=== PATIENT | male | born 1940 | race Caucasian/White ===

== ENCOUNTER 2019-06-06 06:53 | Outpatient (CLI) | payer MEDICARE, OTHER, SELFPAY ==
--- NOTE | ~2019-06-06 | XR_ITS ---
EXAMINATION: XR chest 2V DATE: 06/06/2019 07:25 INDICATION: COPD exacerbation. Cough. TECHNIQUE: PA and lateral views of the chest were obtained. COMPARISON: Chest radiograph dated 09/13/2018 FINDINGS: Hyperexpansion of lungs with flattening of the diaphragm. Increased lucency throughout the left lung particularly at the lower lung zone with architectural distortion consistent with emphysema. No focal airspace opacities, pulmonary edema or pneumothorax. Blunting at the left posterior sulcus consisten t with tiny pleural effusion. The cardiomediastinal silhouette is normal. Coronary artery stent. Ther e are bridging osteophytes at multiple levels in the spine, consistent with diffuse idiopathic skelet al hyperostosis (DISH). IMPRESSION: 1. Hyperexpansion of lungs with increased lucency and architectural distortion consistent with given history of COPD. Reviewed, dictated and finalized at location A. RAL PRE ARRANGEMENT COUNSELOR
[2019-06-06 09:28] LABS: Basophils Percent Auto 0.3 % (0.2-1.2); Eosinophils Percent Auto 0.2 % (0-4.4); Hematocrit 36.9 % (42.0-52.0); Hemoglobin 11.6 g/dL (14.0-18.0); Immature Granulocyte Absolute 0.04 K/mm3 (0.00-0.031); Immature Granulocyte Percent A 0.4 % (0-0.5); Lymphocytes Absolute Auto 1.07 K/mm3 (0.9-3.2); Lymphocytes Percent Auto 10.9 % (18.3-44.2); Mean Corpuscular HGB Conc 31.4 g/dl (32-36); Mean Corpuscular Hemoglobin 25.9 pg (26-34); Mean Corpuscular Volume 82.4 fl (80-100); Mean Platelet Volume 9.4 fl (7.4-10.4); Monocytes Absolute Auto 0.7 K/mm3 (0.1-0.6); Monocytes Percent Auto 6.6 % (2.6-8.5); Neutrophils Percent Auto 81.6 % (45.5-73.1); Platelet Count Result 263 k/mm3 (150-375); Red Blood Count 4.48 M/mm3 (4.6-6.20); Red Cell Distribution Width 19.5 % (11.5-14.5); White Blood Count 9.8 K/mm3 (4.5-10.0)
[2019-06-06 10:05] LABS: Alanine Aminotransferase 21 U/L (4-50); Albumin Level 3.8 g/dL (3.5-5.1); Alkaline Phosphatase 70 U/L (38-126); Aspartate Amino Transferase 29 U/L (17-59); Bilirubin,Total 0.5 mg/dL (0.2-1.3); Blood Urea Nitrogen 16 mg/dL (9-20); Calcium 9.6 mg/dL (8.4-10.2); Carbon Dioxide 30 mmol/L (22-30); Chloride 102 mmol/L (98-107); Cholesterol 108 mg/dL (0-200); Estimated Glomerular Filt Rate > 60; Glucose 164 mg/dL (75-110); HDL Direct 39 mg/dL; Potassium 4.1 mmol/L (3.4-5.0); Sodium 140 mmol/L (137-145); Triglycerides 99 mg/dL (<150)
[2019-06-06 10:16] LABS: LDL Cholesterol Direct 49 mg/dL
[2019-06-06 10:34] LABS: Prostate Specific Antigen 5.4 ng/mL (< OR = 4.0)
[2019-06-06 11:13] LABS: Creatinine Urine 147.1 mg/dL
[2019-06-06 11:17] LABS: MALB Creatinine Ratio 18.8 mg/g (0-30); Microalbumin Urine Random 27.6 mg/L (0-16.7)
== END 2019-06-06 06:54 | disposition home or self-care (01) ==
PROVIDERS: PCP Family Medicine; Visit Provider Family Medicine
DX: J44.1 Chronic obstructive pulmonary disease with (acute) exacerbation (principal); E11.9 Type 2 diabetes mellitus without complications; Z12.5 Encounter for screening for malignant neoplasm of prostate
CPT/HCPCS: 36415; 71046; 80053; 80061; 82043; 83036; 84153; 85025; G0103

== ENCOUNTER 2019-08-10 07:27 | Outpatient (CLI) | payer MEDICARE, OTHER, SELFPAY ==
[2019-08-10 08:27] LABS: Basophils Percent Auto 0.5 % (0.2-1.2); Eosinophils Absolute Auto 0.1 K/mm3 (0-0.3); Eosinophils Percent Auto 1.6 % (0-4.4); Hemoglobin 11.6 g/dL (14.0-18.0); Immature Granulocyte Absolute 0.04 K/mm3 (0.00-0.031); Immature Granulocyte Percent A 0.5 % (0-0.5); Lymphocytes Absolute Auto 1.54 K/mm3 (0.9-3.2); Lymphocytes Percent Auto 18.7 % (18.3-44.2); Mean Corpuscular HGB Conc 31.4 g/dl (32-36); Mean Corpuscular Hemoglobin 26.9 pg (26-34); Mean Corpuscular Volume 85.8 fl (80-100); Mean Platelet Volume 10.1 fl (7.4-10.4); Monocytes Absolute Auto 0.7 K/mm3 (0.1-0.6); Monocytes Percent Auto 8.8 % (2.6-8.5); Neutrophils Absolute Auto 5.8 K/mm3 (1.3-6.7); Neutrophils Percent Auto 69.9 % (45.5-73.1); Platelet Count Result 199 k/mm3 (150-375); Red Blood Count 4.31 M/mm3 (4.6-6.20); Red Cell Distribution Width 17.4 % (11.5-14.5); White Blood Count 8.2 K/mm3 (4.5-10.0)
[2019-08-10 08:44] LABS: Alanine Aminotransferase 24 U/L (4-50); Albumin Level 3.5 g/dL (3.5-5.1); Alkaline Phosphatase 63 U/L (38-126); Aspartate Amino Transferase 25 U/L (17-59); Bilirubin,Total 0.4 mg/dL (0.2-1.3); Blood Urea Nitrogen 19 mg/dL (9-20); Calcium 9.3 mg/dL (8.4-10.2); Carbon Dioxide 30 mmol/L (22-30); Chloride 99 mmol/L (98-107); Cholesterol 123 mg/dL (0-200); Estimated Glomerular Filt Rate > 60; Glucose 148 mg/dL (75-110); HDL Direct 42 mg/dL; Potassium 3.9 mmol/L (3.4-5.0); Sodium 139 mmol/L (137-145); Triglycerides 84 mg/dL (<150)
[2019-08-10 08:55] LABS: LDL Cholesterol Direct 65 mg/dL
== END 2019-08-10 07:28 | disposition home or self-care (01) ==
PROVIDERS: PCP Family Medicine
DX: I25.10 Atherosclerotic heart disease of native coronary artery without angina pectoris (principal); E78.5 Hyperlipidemia, unspecified; I10 Essential (primary) hypertension
CPT/HCPCS: 36415; 80053; 80061; 85025

== ENCOUNTER 2020-01-12 16:35 | Emergency (ER) | payer MEDICARE, OTHER, SELFPAY ==
--- NOTE | ~2020-01-12 | XR_ITS ---
XR wrist LT min 3V 01/12/2020 17:06 Indication: Left wrist pain and redness Procedure: 4 views left wrist Comparison: No prior studies for comparison. Findings: There are degenerative changes of the radiocarpal and triscaphe joint. No fracture or traum atic malalignment. No focal soft tissue abnormality. No radiopaque foreign bodies. Impression: 1: No acute bone or joint abnormality. Reviewed, dictated and finalized at location A. Impression: 1: No acute bone or joint abnormality.
[2020-01-12 16:41] VITALS: BP 135/85; PULSE 87; RESP 20; TEMP 37.5; O2SAT 96
--- NOTE | 2020-01-12 16:41 | ED.GENADULT ---
HPI - General Adult General Chief complaint: Extremity Injury, Lower Stated complaint: left wrist injury Time Seen by Provider: 01/12/20 16:56 Source: patient Mode of arrival: ambulatory Limitations: no limitations History of Present Illness HPI narrative: 79-year-old male patient presents the [facility] care with complaints of left wrist pain that started yesterday. Patient states that his lady friend touched his wrist yesterday and he noticed that it was painful. Patient states he looked down noted some redness and some swelling to the left wrist. Denies any injury that he is aware of to the left wrist. Patient states he was on blood thinners about 9 months ago but no longer taking any blood thinners. Patient states it does have slight pain to the wrist with movement. Related Data Home Medications Medication Instructions Recorded Confirmed Combivent Respimat 01/12/20 Glucophage 01/12/20 Lasix 01/12/20 Lotrel 01/12/20 Pepcid 01/12/20 Protonix 01/12/20 Singulair 01/12/20 Toprol XL 01/12/20 atorvastatin 01/12/20 fluticasone propion-salmeterol INHALATION 01/12/20 [Advair Diskus] hydrochlorothiazide 01/12/20 potassium chloride meq PO 01/12/20 tamsulosin mg PO 01/12/20 tiotropium bromide [Spiriva with INHALATION 01/12/20 01/12/20 HandiHaler] Allergies Allergy/AdvReac Type Severity Reaction Status Date / Time No Known Allergies Allergy Unverified 09/13/18 19:18 Review of Systems Review of Systems: Narrative: CONSTITUTIONAL: Denies fever, chills, or sweats. EYES: Denies visual changes, redness, or discharge. ENT: Denies rhinorrhea, congestion, sore throat, or otalgia. CARDIOVASCULAR: Denies chest pain, palpitations, or edema. RESPIRATORY: Denies cough or dyspnea. GASTROINTESTINAL: Denies abdominal pain, nausea, vomiting, or diarrhea. GENITOURINARY: Denies dysuria or hematuria. SKIN: Denies rash or itching. MUSCULOSKELETAL: Denies back pain, joint pain, or myalgia. Positive left wrist pain NEUROLOGIC: Denies headache, numbness, or weakness. PSYCHIATRIC: Denies anxiety or depression. [facility] Past Medical History Medical History (Updated 01/12/20 @ 17:14 by INGE Fields) BPH (benign prostatic hyperplasia) Cataracts, bilateral COPD (chronic obstructive pulmonary disease) Diabetes Hypercholesterolemia Hypertension Pneumonia Surgical History Surgical History (Updated 01/12/20 @ 17:10 by INGE Fields) H/O cardiac catheterization 2005 H/O transurethral resection of prostate 2017 History of appendectomy History of bladder surgery Family History Family History Father Family history of arthritis Mother Family history of arthritis Social History Social History Smoking status: Former smoker Alcohol intake: current Gender identity (if verbalized by the patient): Male Comments At the time of my signature I agree with nursing past medical history, surgical, social, and family history. There is no relevant family history pertinent to the presenting complaint. Exam Narrative: Exam Narrative: GENERAL: Well-appearing, well-nourished, and in no acute distress. HEAD: Normocephalic, atraumatic. EYES: PERRLA and EOMI. ENT: Nares clear, no rhinorrhea or epistaxis. Mucous membranes moist. NECK: Supple. No lymphadenopathy CHEST: Clear to auscultation. No respiratory distress. HEART: Regular rate and rhythm. No murmur heard. Normal peripheral pulses. ABDOMEN: Soft, nontender, nondistended, normal active bowel sounds. EXTREMITIES: The L wrist is without obvious asymmetry or deformity when compared to the R wrist. No surface trauma, open wounds, swelling, or obvious deformity. overlying erythema with slight warmth noted over the dorsal and ulnar side of the joint of the wrist. Patient does have pain with flexion of the wrist and mild pain with dorsiflexion of
== END 2020-01-12 17:27 | disposition home or self-care (01) ==
PROVIDERS: Emergency Provider Nurse Practitioner Family; PCP Family Medicine
DX: M10.9 Gout, unspecified (principal); Z87.891 Personal history of nicotine dependence; N40.0 Benign prostatic hyperplasia without lower urinary tract symptoms; J44.9 Chronic obstructive pulmonary disease, unspecified; E11.9 Type 2 diabetes mellitus without complications; E78.00 Pure hypercholesterolemia, unspecified; I10 Essential (primary) hypertension
CPT/HCPCS: 73110; 99213; G0463

== ENCOUNTER 2020-02-15 07:26 | Outpatient (CLI) | payer MEDICARE, OTHER, SELFPAY ==
[2020-02-15 07:54] LABS: Basophils Absolute Auto 0.1 K/mm3 (0.0-0.1); Basophils Percent Auto 0.8 % (0.2-1.2); Eosinophils Absolute Auto 0.3 K/mm3 (0-0.3); Hematocrit 34.6 % (42.0-52.0); Hemoglobin 11.4 g/dL (14.0-18.0); Immature Granulocyte Absolute 0.03 K/mm3 (0.00-0.031); Immature Granulocyte Percent A 0.3 % (0-0.5); Lymphocytes Absolute Auto 1.76 K/mm3 (0.9-3.2); Lymphocytes Percent Auto 20.5 % (18.3-44.2); Mean Corpuscular HGB Conc 32.9 g/dl (32-36); Mean Corpuscular Hemoglobin 30.7 pg (26-34); Mean Corpuscular Volume 93.3 fl (80-100); Mean Platelet Volume 9.7 fl (7.4-10.4); Monocytes Absolute Auto 0.8 K/mm3 (0.1-0.6); Monocytes Percent Auto 9.4 % (2.6-8.5); Neutrophils Absolute Auto 5.6 K/mm3 (1.3-6.7); Platelet Count Result 211 k/mm3 (150-375); Red Blood Count 3.71 M/mm3 (4.6-6.20); Red Cell Distribution Width 12.7 % (11.5-14.5); White Blood Count 8.6 K/mm3 (4.5-10.0)
[2020-02-15 07:59] LABS: Alanine Aminotransferase 17 U/L (4-50); Albumin Level 3.9 g/dL (3.5-5.1); Alkaline Phosphatase 67 U/L (38-126); Anion Gap 10 mmol/L (8-16); Aspartate Amino Transferase 25 U/L (17-59); Bilirubin,Total 0.3 mg/dL (0.2-1.3); Blood Urea Nitrogen 30 mg/dL (9-20); Calcium 8.9 mg/dL (8.4-10.2); Carbon Dioxide 32 mmol/L (22-30); Chloride 97 mmol/L (98-107); Cholesterol 113 mg/dL (0-200); Estimated Glomerular Filt Rate 49; Glucose 117 mg/dL (75-110); HDL Direct 31 mg/dL; Potassium 3.2 mmol/L (3.4-5.0); Sodium 139 mmol/L (137-145); Triglycerides 117 mg/dL (<150)
[2020-02-15 08:10] LABS: LDL Cholesterol Direct 56 mg/dL
== END 2020-02-15 07:27 | disposition home or self-care (01) ==
LOC: ANHLAB 07:31
PROVIDERS: PCP Family Medicine
DX: I25.10 Atherosclerotic heart disease of native coronary artery without angina pectoris (principal)
CPT/HCPCS: 36415; 80053; 80061; 85025

== ENCOUNTER 2020-02-19 11:38 | Outpatient (CLI) | payer MEDICARE, OTHER, SELFPAY | END 2020-02-19 11:39 | disposition home or self-care (01) | LOC: ANHLAB 11:42 | PROVIDERS: PCP Family Medicine; Visit Provider Family Medicine | DX: R53.83 Other fatigue (principal); L65.9 Nonscarring hair loss, unspecified | CPT/HCPCS: 36415; 82607; 84443 ==

== ENCOUNTER 2020-08-22 07:31 | Outpatient (CLI) | payer MEDICARE, OTHER, SELFPAY ==
[2020-08-22 07:54] LABS: Basophils Absolute Auto 0.1 K/mm3 (0.0-0.1); Basophils Percent Auto 0.9 % (0.2-1.2); Eosinophils Absolute Auto 0.3 K/mm3 (0-0.3); Eosinophils Percent Auto 4.6 % (0-4.4); Hematocrit 34.2 % (42.0-52.0); Hemoglobin 10.9 g/dL (14.0-18.0); Immature Granulocyte Absolute 0.02 K/mm3 (0.00-0.031); Immature Granulocyte Percent A 0.3 % (0-0.5); Lymphocytes Percent Auto 21.4 % (18.3-44.2); Mean Corpuscular HGB Conc 31.9 g/dl (32-36); Mean Corpuscular Hemoglobin 26.1 pg (26-34); Mean Corpuscular Volume 81.8 fl (80-100); Mean Platelet Volume 9.3 fl (7.4-10.4); Monocytes Absolute Auto 0.6 K/mm3 (0.1-0.6); Monocytes Percent Auto 9.1 % (2.6-8.5); Neutrophils Absolute Auto 4.5 K/mm3 (1.3-6.7); Neutrophils Percent Auto 63.7 % (45.5-73.1); Platelet Count Result 203 k/mm3 (150-375); Red Blood Count 4.18 M/mm3 (4.6-6.20); Red Cell Distribution Width 16.8 % (11.5-14.5)
[2020-08-22 08:13] LABS: Alanine Aminotransferase 16 U/L (4-50); Albumin Level 3.8 g/dL (3.5-5.1); Alkaline Phosphatase 56 U/L (38-126); Anion Gap 11 mmol/L (8-16); Aspartate Amino Transferase 27 U/L (17-59); Bilirubin,Total 0.4 mg/dL (0.2-1.3); Blood Urea Nitrogen 30 mg/dL (9-20); Carbon Dioxide 32 mmol/L (22-30); Chloride 96 mmol/L (98-107); Cholesterol 123 mg/dL (0-200); Estimated Glomerular Filt Rate 45; Glucose 124 mg/dL (75-110); HDL Direct 37 mg/dL; Potassium 3.6 mmol/L (3.4-5.0); Sodium 139 mmol/L (137-145); Triglycerides 119 mg/dL (<150)
[2020-08-22 08:24] LABS: LDL Cholesterol Direct 59 mg/dL
== END 2020-08-22 07:32 | disposition home or self-care (01) ==
PROVIDERS: PCP Family Medicine; Visit Provider Internal Medicine Interventional Cardiology
DX: I25.10 Atherosclerotic heart disease of native coronary artery without angina pectoris (principal)
CPT/HCPCS: 36415; 80053; 80061; 85025

== ENCOUNTER 2020-09-09 14:42 | Outpatient (CLI) | payer MEDICARE, OTHER, SELFPAY ==
[2020-09-09 15:11] LABS: Anion Gap 6 mmol/L (8-16); Blood Urea Nitrogen 27 mg/dL (9-20); Calcium 8.9 mg/dL (8.4-10.2); Carbon Dioxide 33 mmol/L (22-30); Chloride 102 mmol/L (98-107); Estimated Glomerular Filt Rate 45; Glucose 112 mg/dL (75-110); Potassium 3.9 mmol/L (3.4-5.0); Sodium 141 mmol/L (137-145)
== END 2020-09-09 14:43 | disposition home or self-care (01) ==
PROVIDERS: PCP Family Medicine; Visit Provider Internal Medicine Interventional Cardiology
DX: I10 Essential (primary) hypertension (principal)
CPT/HCPCS: 36415; 80048

== ENCOUNTER 2020-11-24 15:42 | Outpatient (CLI) | payer MEDICARE, OTHER, SELFPAY ==
[2020-11-24 16:51] LABS: Anion Gap 1 mmol/L (8-16); Blood Urea Nitrogen 27 mg/dL (9-20); Calcium 10.1 mg/dL (8.4-10.2); Carbon Dioxide 31 mmol/L (22-30); Chloride 105 mmol/L (98-107); Estimated Glomerular Filt Rate 59; Glucose 114 mg/dL (75-110); Potassium 4.4 mmol/L (3.4-5.0); Sodium 137 mmol/L (137-145)
== END 2020-11-24 15:43 | disposition home or self-care (01) ==
LOC: ANHLAB 15:45
PROVIDERS: PCP Family Medicine; Visit Provider Internal Medicine Interventional Cardiology
DX: I10 Essential (primary) hypertension (principal)
CPT/HCPCS: 36415; 80048

== ENCOUNTER 2020-11-24 15:47 | Outpatient (CLI) | payer MEDICARE, OTHER, SELFPAY ==
[2020-11-24 16:53] LABS: Hemoglobin A1C 6.6 % (<5.7)
== END 2020-11-24 15:48 | disposition home or self-care (01) ==
LOC: ANHLAB 15:48
PROVIDERS: PCP Family Medicine; Visit Provider Family Medicine
DX: E11.9 Type 2 diabetes mellitus without complications (principal)
CPT/HCPCS: 36415; 80048; 83036

== ENCOUNTER 2021-04-10 08:56 | Outpatient (CLI) | payer MEDICARE, OTHER, SELFPAY ==
[2021-04-10 10:20] LABS: Alanine Aminotransferase 16 U/L (4-50); Albumin Level 3.8 g/dL (3.5-5.1); Alkaline Phosphatase 70 U/L (38-126); Anion Gap 3 mmol/L (8-16); Aspartate Amino Transferase 25 U/L (17-59); Bilirubin,Total 0.3 mg/dL (0.2-1.3); Blood Urea Nitrogen 18 mg/dL (9-20); Calcium 9.1 mg/dL (8.4-10.2); Carbon Dioxide 34 mmol/L (22-30); Chloride 102 mmol/L (98-107); Cholesterol 122 mg/dL (0-200); Estimated Glomerular Filt Rate > 60; Glucose 154 mg/dL (65-110); HDL Direct 42 mg/dL; Potassium 3.8 mmol/L (3.4-5.0); Sodium 139 mmol/L (137-145); Triglycerides 82 mg/dL (<150)
[2021-04-10 10:31] LABS: LDL Cholesterol Direct 64 mg/dL
== END 2021-04-10 08:57 | disposition home or self-care (01) ==
LOC: ANHLAB 08:59
PROVIDERS: PCP Family Medicine; Visit Provider Internal Medicine Interventional Cardiology
DX: I10 Essential (primary) hypertension (principal); I25.118 Atherosclerotic heart disease of native coronary artery with other forms of angina pectoris
CPT/HCPCS: 36415; 80053; 80061

== ENCOUNTER 2021-07-10 07:00 | Outpatient (CLI) | payer MEDICARE, OTHER, SELFPAY ==
[2021-07-10 09:08] LABS: Hemoglobin A1C 7.7 % (<5.7)
== END 2021-07-10 07:01 | disposition home or self-care (01) ==
PROVIDERS: PCP Family Medicine; Visit Provider Family Medicine
DX: E11.9 Type 2 diabetes mellitus without complications (principal)
CPT/HCPCS: 36415; 83036

== ENCOUNTER 2021-10-15 08:56 | Outpatient (CLI) | payer MEDICARE, OTHER, SELFPAY ==
[2021-10-15 09:29] LABS: Alanine Aminotransferase 80 U/L (4-50); Albumin Level 3.5 g/dL (3.5-5.1); Alkaline Phosphatase 134 U/L (38-126); Anion Gap 4 mmol/L (8-16); Aspartate Amino Transferase 36 U/L (17-59); Bilirubin,Total 0.6 mg/dL (0.2-1.3); Blood Urea Nitrogen 33 mg/dL (9-20); Calcium 9.1 mg/dL (8.4-10.2); Carbon Dioxide 30 mmol/L (22-30); Chloride 102 mmol/L (98-107); Cholesterol 131 mg/dL (0-200); Estimated Glomerular Filt Rate 53; Glucose 235 mg/dL (65-110); HDL Direct 42 mg/dL; Potassium 4.9 mmol/L (3.4-5.0); Sodium 136 mmol/L (137-145); Triglycerides 119 mg/dL (<150)
[2021-10-15 09:40] LABS: LDL Cholesterol Direct 59 mg/dL
== END 2021-10-15 08:57 | disposition home or self-care (01) ==
LOC: ANHLAB 09:01
PROVIDERS: PCP Family Medicine; Visit Provider Internal Medicine Interventional Cardiology
DX: E78.5 Hyperlipidemia, unspecified (principal); I48.91 Unspecified atrial fibrillation
CPT/HCPCS: 36415; 80053; 80061

== ENCOUNTER 2022-01-18 07:07 | Outpatient (CLI) | payer MEDICARE, OTHER, SELFPAY ==
[2022-01-18 07:37] LABS: Basophils Absolute Auto 0.1 K/mm3 (0.0-0.1); Basophils Percent Auto 0.9 % (0.2-1.2); Eosinophils Absolute Auto 0.5 K/mm3 (0-0.3); Eosinophils Percent Auto 4.1 % (0-4.4); Hematocrit 34.1 % (42.0-52.0); Hemoglobin 10.7 g/dL (14.0-18.0); Immature Granulocyte Absolute 0.16 K/mm3 (0.00-0.031); Immature Granulocyte Percent A 1.5 % (0-0.5); Lymphocytes Absolute Auto 1.46 K/mm3 (0.9-3.2); Lymphocytes Percent Auto 13.3 % (18.3-44.2); Mean Corpuscular HGB Conc 31.4 g/dl (32-36); Mean Corpuscular Hemoglobin 27.2 pg (26-34); Mean Corpuscular Volume 86.8 fl (80-100); Mean Platelet Volume 9.3 fl (7.4-10.4); Monocytes Absolute Auto 1.1 K/mm3 (0.1-0.6); Monocytes Percent Auto 9.8 % (2.6-8.5); Neutrophils Absolute Auto 7.7 K/mm3 (1.3-6.7); Neutrophils Percent Auto 70.4 % (45.5-73.1); Platelet Count Result 272 k/mm3 (150-375); Red Blood Count 3.93 M/mm3 (4.6-6.20); Red Cell Distribution Width 17.8 % (11.5-14.5)
[2022-01-18 07:47] LABS: Alanine Aminotransferase 23 U/L (6-50); Albumin Level 3.5 g/dL (3.5-5.1); Alkaline Phosphatase 98 U/L (38-126); Anion Gap 5 mmol/L (8-16); Aspartate Amino Transferase 22 U/L (17-59); Bilirubin,Total 0.3 mg/dL (0.2-1.3); Blood Urea Nitrogen 23 mg/dL (9-20); Calcium 9.1 mg/dL (8.4-10.2); Carbon Dioxide 28 mmol/L (22-30); Chloride 105 mmol/L (98-107); Cholesterol 106 mg/dL (0-200); Estimated Glomerular Filt Rate > 60; Glucose 162 mg/dL (65-110); HDL Direct 34 mg/dL; Potassium 4.5 mmol/L (3.4-5.0); Sodium 138 mmol/L (137-145); Triglycerides 79 mg/dL (<150)
[2022-01-18 07:57] LABS: LDL Cholesterol Direct 40 mg/dL
== END 2022-01-18 07:08 | disposition home or self-care (01) ==
PROVIDERS: PCP Family Medicine; Visit Provider Internal Medicine Interventional Cardiology
DX: I48.0 Paroxysmal atrial fibrillation (principal); I25.10 Atherosclerotic heart disease of native coronary artery without angina pectoris; E78.5 Hyperlipidemia, unspecified; I10 Essential (primary) hypertension
CPT/HCPCS: 36415; 80053; 80061; 85025

== ENCOUNTER 2022-02-02 12:30 | Outpatient (CLI) | payer MEDICARE, OTHER, SELFPAY ==
[2022-02-02 12:59] LABS: Basophils Absolute Auto 0.1 K/mm3 (0.0-0.1); Basophils Percent Auto 0.7 % (0.2-1.2); Eosinophils Absolute Auto 0.3 K/mm3 (0-0.3); Eosinophils Percent Auto 3.3 % (0-4.4); Hematocrit 36.6 % (42.0-52.0); Immature Granulocyte Absolute 0.07 K/mm3 (0.00-0.031); Immature Granulocyte Percent A 0.7 % (0-0.5); Lymphocytes Absolute Auto 1.06 K/mm3 (0.9-3.2); Mean Corpuscular HGB Conc 30.1 g/dl (32-36); Mean Corpuscular Hemoglobin 27.1 pg (26-34); Mean Corpuscular Volume 90.1 fl (80-100); Mean Platelet Volume 9.4 fl (7.4-10.4); Monocytes Absolute Auto 0.9 K/mm3 (0.1-0.6); Monocytes Percent Auto 9.3 % (2.6-8.5); Neutrophils Absolute Auto 7.2 K/mm3 (1.3-6.7); Platelet Count Result 207 k/mm3 (150-375); Red Blood Count 4.06 M/mm3 (4.6-6.20); White Blood Count 9.6 K/mm3 (4.5-10.0)
== END 2022-02-02 12:31 | disposition home or self-care (01) ==
LOC: ANHLAB 12:34
PROVIDERS: PCP Family Medicine; Visit Provider Internal Medicine Gastroenterology
DX: D64.9 Anemia, unspecified (principal)
CPT/HCPCS: 36415; 85025

== ENCOUNTER 2022-02-25 14:11 | Outpatient (CLI) | payer MEDICARE, OTHER, SELFPAY ==
[2022-02-25 15:30] LABS: Anion Gap 10 mmol/L (8-16); Blood Urea Nitrogen 33 mg/dL (9-20); Carbon Dioxide 27 mmol/L (22-30); Chloride 98 mmol/L (98-107); Estimated Glomerular Filt Rate 45; Glucose 103 mg/dL (65-110); Sodium 135 mmol/L (137-145)
== END 2022-02-25 14:12 | disposition home or self-care (01) ==
LOC: ANHLAB 14:15
PROVIDERS: PCP Family Medicine; Visit Provider Internal Medicine Interventional Cardiology
DX: I10 Essential (primary) hypertension (principal)
CPT/HCPCS: 36415; 80048

== ENCOUNTER 2022-05-04 15:41 | Outpatient (CLI) | payer MEDICARE, OTHER, SELFPAY ==
[2022-05-04 16:03] LABS: Hematocrit 38.3 % (42.0-52.0); Hemoglobin 11.6 g/dL (14.0-18.0); Mean Corpuscular HGB Conc 30.3 g/dl (32-36); Mean Corpuscular Hemoglobin 27.2 pg (26-34); Mean Corpuscular Volume 89.7 fl (80-100); Mean Platelet Volume 9.7 fl (7.4-10.4); Platelet Count Result 205 k/mm3 (150-375); Red Blood Count 4.27 M/mm3 (4.6-6.20); Red Cell Distribution Width 20.8 % (11.5-14.5); White Blood Count 9.8 K/mm3 (4.5-10.0)
[2022-05-04 16:12] LABS: Alanine Aminotransferase 24 U/L (6-50); Albumin Level 4.1 g/dL (3.5-5.1); Alkaline Phosphatase 104 U/L (38-126); Anion Gap 14 mmol/L (8-16); Aspartate Amino Transferase 30 U/L (17-59); Bilirubin,Total 0.3 mg/dL (0.2-1.3); Blood Urea Nitrogen 29 mg/dL (9-20); Calcium 9.4 mg/dL (8.4-10.2); Carbon Dioxide 26 mmol/L (22-30); Chloride 100 mmol/L (98-107); Estimated Glomerular Filt Rate 49; Glucose 130 mg/dL (65-110); Potassium 4.1 mmol/L (3.4-5.0); Sodium 140 mmol/L (137-145)
[2022-05-04 16:14] LABS: Iron 100 ug/dL (49-181)
[2022-05-04 16:15] LABS: Hemoglobin A1C 7.1 % (<5.7)
[2022-05-04 16:23] LABS: Percent Iron Saturation 26 % (20-50)
== END 2022-05-04 15:42 | disposition home or self-care (01) ==
PROVIDERS: PCP Family Medicine; Visit Provider Internal Medicine Gastroenterology
DX: E11.9 Type 2 diabetes mellitus without complications (principal); D64.9 Anemia, unspecified
CPT/HCPCS: 36415; 80053; 83036; 83540; 83550; 85027

== ENCOUNTER 2022-05-15 13:23 | Outpatient (CLI) | payer MEDICARE, OTHER, SELFPAY ==
[2022-05-15 13:48] LABS: Anion Gap 15 mmol/L (8-16); Blood Urea Nitrogen 30 mg/dL (9-20); Calcium 9.4 mg/dL (8.4-10.2); Carbon Dioxide 28 mmol/L (22-30); Chloride 100 mmol/L (98-107); Estimated Glomerular Filt Rate 49; Glucose 132 mg/dL (65-110); Potassium 4.3 mmol/L (3.4-5.0); Sodium 143 mmol/L (137-145)
== END 2022-05-15 13:24 | disposition home or self-care (01) ==
LOC: ANHLAB 13:26
PROVIDERS: PCP Family Medicine; Visit Provider Internal Medicine Interventional Cardiology
DX: I10 Essential (primary) hypertension (principal)
CPT/HCPCS: 36415; 80048

== ENCOUNTER 2022-11-03 07:03 | Outpatient (CLI) | payer MEDICARE, OTHER, SELFPAY ==
[2022-11-03 07:53] LABS: Basophils Absolute Auto 0.1 K/mm3 (0.0-0.1); Basophils Percent Auto 0.6 % (0.2-1.2); Eosinophils Absolute Auto 0.2 K/mm3 (0-0.3); Eosinophils Percent Auto 2.2 % (0-4.4); Hematocrit 40.8 % (42.0-52.0); Hemoglobin 12.7 g/dL (14.0-18.0); Immature Granulocyte Absolute 0.15 K/mm3 (0.00-0.031); Immature Granulocyte Percent A 1.7 % (0-0.5); Lymphocytes Absolute Auto 0.97 K/mm3 (0.9-3.2); Lymphocytes Percent Auto 11.2 % (18.3-44.2); Mean Corpuscular HGB Conc 31.1 g/dl (32-36); Mean Corpuscular Hemoglobin 29.3 pg (26-34); Mean Corpuscular Volume 94.2 fl (80-100); Mean Platelet Volume 9.6 fl (7.4-10.4); Monocytes Absolute Auto 0.7 K/mm3 (0.1-0.6); Monocytes Percent Auto 7.6 % (2.6-8.5); Neutrophils Absolute Auto 6.6 K/mm3 (1.3-6.7); Neutrophils Percent Auto 76.7 % (45.5-73.1); Platelet Count Result 209 k/mm3 (150-375); Red Blood Count 4.33 M/mm3 (4.6-6.20); Red Cell Distribution Width 16.9 % (11.5-14.5); White Blood Count 8.6 K/mm3 (4.5-10.0)
[2022-11-03 08:10] LABS: Alanine Aminotransferase 25 U/L (6-50); Albumin Level 4.4 g/dL (3.5-5.1); Alkaline Phosphatase 106 U/L (38-126); Anion Gap 7 mmol/L (8-16); Aspartate Amino Transferase 29 U/L (17-59); Bilirubin,Total 0.7 mg/dL (0.2-1.3); Blood Urea Nitrogen 28 mg/dL (9-20); Calcium 9.8 mg/dL (8.4-10.2); Carbon Dioxide 33 mmol/L (22-30); Chloride 100 mmol/L (98-107); Cholesterol 110 mg/dL (0-200); Estimated Glomerular Filt Rate 53; Glucose 167 mg/dL (65-110); HDL Direct 39 mg/dL; Potassium 4.3 mmol/L (3.4-5.0); Sodium 140 mmol/L (137-145); Triglycerides 103 mg/dL (<150)
[2022-11-03 08:21] LABS: LDL Cholesterol Direct 52 mg/dL
[2022-11-03 09:45] LABS: Hemoglobin A1C 6.9 % (<5.7)
== END 2022-11-03 07:04 | disposition home or self-care (01) ==
LOC: ANHLAB 07:07
PROVIDERS: PCP Family Medicine
DX: E11.9 Type 2 diabetes mellitus without complications (principal); E78.2 Mixed hyperlipidemia
CPT/HCPCS: 36415; 80053; 80061; 83036; 85025

== ENCOUNTER 2022-12-23 06:51 | Outpatient (CLI) | payer MEDICARE, OTHER, SELFPAY ==
[2022-12-23 07:23] LABS: Basophils Absolute Auto 0.1 K/mm3 (0.0-0.1); Basophils Percent Auto 0.7 % (0.2-1.2); Eosinophils Absolute Auto 0.4 K/mm3 (0-0.3); Eosinophils Percent Auto 4.3 % (0-4.4); Hematocrit 38.4 % (42.0-52.0); Hemoglobin 11.7 g/dL (14.0-18.0); Immature Granulocyte Absolute 0.06 K/mm3 (0.00-0.031); Immature Granulocyte Percent A 0.6 % (0-0.5); Lymphocytes Absolute Auto 0.98 K/mm3 (0.9-3.2); Lymphocytes Percent Auto 9.9 % (18.3-44.2); Mean Corpuscular HGB Conc 30.5 g/dl (32-36); Mean Corpuscular Hemoglobin 27.4 pg (26-34); Mean Corpuscular Volume 89.9 fl (80-100); Mean Platelet Volume 9.8 fl (7.4-10.4); Monocytes Absolute Auto 0.8 K/mm3 (0.1-0.6); Monocytes Percent Auto 8.4 % (2.6-8.5); Neutrophils Absolute Auto 7.5 K/mm3 (1.3-6.7); Neutrophils Percent Auto 76.1 % (45.5-73.1); Platelet Count Result 222 k/mm3 (150-375); Red Blood Count 4.27 M/mm3 (4.6-6.20); Red Cell Distribution Width 16.2 % (11.5-14.5); White Blood Count 9.9 K/mm3 (4.5-10.0)
[2022-12-23 07:33] LABS: Alanine Aminotransferase 17 U/L (6-50); Albumin Level 4.1 g/dL (3.5-5.1); Alkaline Phosphatase 105 U/L (38-126); Anion Gap 4 mmol/L (8-16); Aspartate Amino Transferase 23 U/L (17-59); Bilirubin,Total 0.4 mg/dL (0.2-1.3); Blood Urea Nitrogen 31 mg/dL (9-20); Calcium 9.8 mg/dL (8.4-10.2); Carbon Dioxide 34 mmol/L (22-30); Chloride 101 mmol/L (98-107); Cholesterol 106 mg/dL (0-200); Estimated Glomerular Filt Rate 49; Glucose 174 mg/dL (65-110); HDL Direct 32 mg/dL; Potassium 4.7 mmol/L (3.4-5.0); Sodium 139 mmol/L (137-145); Triglycerides 115 mg/dL (<150)
[2022-12-23 07:43] LABS: LDL Cholesterol Direct 51 mg/dL
== END 2022-12-23 06:52 | disposition home or self-care (01) ==
PROVIDERS: PCP Family Medicine; Visit Provider Internal Medicine Interventional Cardiology
DX: E78.00 Pure hypercholesterolemia, unspecified (principal); I10 Essential (primary) hypertension; D64.9 Anemia, unspecified
CPT/HCPCS: 36415; 80053; 80061; 85025

== ENCOUNTER 2022-12-24 18:31 | Emergency (ER) | payer MEDICARE, OTHER, SELFPAY ==
[2022-12-24] VITALS (21 sets, daily range): BP systolic 105–137; BP diastolic 7–97; PULSE 95–114; RESP 12–37; TEMP 36.7; O2SAT 89–97
--- NOTE | ~2022-12-24 | CT_ITS ---
EXAMINATION: CTA chest PE protocol DATE: 12/24/2022 21:06 INDICATION: tachycardia, hypoxia, SOB TECHNIQUE: Computed tomography angiography (CTA) of the chest was performed with 100 mL Omnipaque-350 intravenous contrast timed to evaluate the pulmonary arteries. Coronal maximum intensity projection 3D-reconstructions were created by the technologist. The dose-length product (DLP) was 444.54 mGy-cm. Automated exposure control and iterative reconstruction technique were employed. COMPARISON: None. FINDINGS: Lung parenchyma and airways: Calcified left upper lobe granuloma. Emphysematous changes. Patent airwa ys. Pleura: Unremarkable. Thoracic inlet, axillae and chest wall: Unremarkable. Thoracic aorta: Moderate diffuse ectasia and unfolding. Mild calcification. Mediastinum: Prominent mediastinal lymph nodes, not pathologic based on size criteria. Dilated centra l pulmonary arteries, as can be seen with pulmonary arterial hypertension. Patulous esophagus. Heart and pericardium: Moderate volume pericardial fluid. Suggestion of narrowing of the heart apex. Mild septal bowing. Coronary artery calcifications: Absent. Upper abdomen: Marked gastric distention. Bones: No acute osseous finding. Pulmonary arteries: Study quality: Adequate. No pulmonary emboli detected. IMPRESSION: No CT evidence of acute pulmonary embolus. Moderate volume pericardial fluid with CT findings that suggest raised intracardiac pressure (cardiac tamponade). Marked gastric distention. Reviewed, dictated and finalized at location K. IMPRESSION: No CT evidence of acute pulmonary embolus. Moderate volume pericardial fluid with CT findings that suggest raised intracar diac pressure (cardiac tamponade). Marked gastric distention.
--- NOTE | ~2022-12-24 | XR_ITS ---
EXAMINATION: XR chest 1V portable Exam Date/Time: 12/24/2022 19:35 CDT HISTORY: SOB Comparison: 06/06/2019. RESULT: Lines, tubes, and devices: None. Lungs and pleura: Senescent and emphysematous changes, otherwise clear. Cardiomediastinal silhouette: Stable. Other: No acute osseous or upper abdominal finding. IMPRESSION: No acute cardiopulmonary process. Reviewed, dictated and finalized at location K.
--- NOTE | 2022-12-24 19:00 | ECG_ITS ---
Measurements Intervals [place] Rate: 97 P: MO: 0 QRS: 15 QRSD: 72 T: 61 QT: 328 QTc: 418 Interpretive Statements ATRIAL FIBRILLATION LOW QRS VOLTAGE [QRS DEFLECTION < 0.5/1.0 mV IN LIMB/CHEST LEADS] ABNORMAL ECG NO PREVIOUS ECG AVAILABLE FOR COMPARISON Electronically Signed On 12-25-2022 8:14:54 CDT by Derick Costa M.D.
--- NOTE | 2022-12-24 19:03 | ED.RECABL ---
HPI - Recheck/Abnormal Lab/Rx General Chief Complaint: Recheck/Abnormal Lab/Rx Stated Complaint: low blood pressure Time Seen by Provider: 12/24/22 18:49 History of Present Illness HPI narrative: Patient is an 82-year-old male here for evaluation of positional lightheadedness x6 days. Patient states that when he goes from sitting to standing he feels lightheaded. He has also had an increase in shortness of breath for the past several days, has had a cough productive of clear sputum. Has a history of COPD and wears 3 L intermittently. His daughter who is a nurse came over today to check on him and noticed that his blood pressure was slightly low and that his oxygen was at 80% on room air. He was placed on his 3 L and he came up to the 90s. Related Data Home Medications Medication Instructions Recorded Confirmed Combivent Respimat 01/12/20 Glucophage 01/12/20 Lasix 01/12/20 Lotrel 01/12/20 Pepcid 01/12/20 Protonix 01/12/20 Singulair 01/12/20 Toprol XL 01/12/20 atorvastatin 01/12/20 fluticasone 250 mcg-salmeterol 50 inhalation 01/12/20 mcg/dose blistr powdr for inhalation (Advair Diskus) hydrochlorothiazide 01/12/20 potassium chloride 20 mEq meq PO 01/12/20 tablet,extended release(part/cryst) tamsulosin 0.4 mg capsule mg PO 01/12/20 tiotropium bromide 18 mcg capsule inhalation 01/12/20 01/12/20 with inhalation device (Spiriva with HandiHaler) Allergies Allergy/AdvReac Type Severity Reaction Status Date / Time No Known Allergies Allergy Unverified 09/13/18 19:18 Review of Systems Review of Systems: Gen.: Reports lightheadedness Eyes: Denies eye pain or visual change ENT: Denies congestion Respiratory: Reports shortness of breath CV: Denies chest pain or palpitations GI: Denies abdominal pain nausea, emesis or diarrhea : denies burning, urgency, frequency or hematuria Musculoskeletal: Denies back pain or muscle pain Neuro: Denies numbness, tingling, weakness or focal weakness Skin: Denies rash Except as documented, all other systems reviewed and negative PMF Past Medical History Medical History BPH (benign prostatic hyperplasia) Cataracts, bilateral COPD (chronic obstructive pulmonary disease) Diabetes Hypercholesterolemia Hypertension Pneumonia Surgical History Surgical History H/O cardiac catheterization 2005 H/O transurethral resection of prostate 2017 History of appendectomy History of bladder surgery Family History Family History Father Family history of arthritis Mother Family history of arthritis Social History Social History Smoking status: Former smoker Alcohol intake: current Gender identity (if verbalized by the patient): Male Exam Narrative: APPEARANCE: Chronically ill-appearing. Head: Normocephalic and atraumatic. EYES: PERRLA/EOMI, conjunctivae clear NOSE: No nasal drainage EARS: External ear normal in appearance THROAT: Oropharynx is clear. Mucous membranes are moist. NECK: Supple. No adenopathy, no masses. RESPIRATORY: Airway patent, respirations nonlabored. Clear to auscultation bilaterally, no rales, rhonchi, wheezing. CARDIOVASCULAR: Regular rate and rhythm without murmurs, rubs, or gallops. ABDOMINAL: Normoactive bowel sounds. Soft, nontender, nondistended. No rebound tenderness or guarding. MUSCULOSKELETAL: 1+ pitting edema to bilateral lower extremities. Extremities are warm and well-perfused. Moves all extremities well. NEURO: Normal speech. No focal neurologic deficits. SKIN: Skin is warm and dry. No rashes. PSYCHIATRIC: Normal affect/mood. Course Vital Signs Vital signs: Vital Signs Temperature 98.1 F 12/24/22 18:33 Pulse Rate 107 H 12/24/22 18:33 Respira
[2022-12-24] MEDS: ALBUTEROL SULFATE NEB 2.5 MG/3 ML INH INHALATION (19:17)
[2022-12-24] MEDS: IPRATROPIUM BR 0.02% INH SOLN 0.5 MG/2.5 ML VIAL INHALATION (19:17)
[2022-12-24 19:30] LABS: Basophils Absolute Auto 0.1 K/mm3 (0.0-0.1); Basophils Percent Auto 0.8 % (0.2-1.2); Eosinophils Absolute Auto 0.3 K/mm3 (0-0.3); Eosinophils Percent Auto 3.3 % (0-4.4); Hematocrit 34.8 % (42.0-52.0); Hemoglobin 11.1 g/dL (14.0-18.0); Immature Granulocyte Absolute 0.06 K/mm3 (0.00-0.031); Immature Granulocyte Percent A 0.6 % (0-0.5); Lymphocytes Absolute Auto 1.19 K/mm3 (0.9-3.2); Lymphocytes Percent Auto 11.5 % (18.3-44.2); Mean Corpuscular HGB Conc 31.9 g/dl (32-36); Mean Corpuscular Hemoglobin 28.4 pg (26-34); Monocytes Percent Auto 9.7 % (2.6-8.5); Neutrophils Absolute Auto 7.7 K/mm3 (1.3-6.7); Neutrophils Percent Auto 74.1 % (45.5-73.1); Platelet Count Result 219 k/mm3 (150-375); Red Blood Count 3.91 M/mm3 (4.6-6.20); Red Cell Distribution Width 16.3 % (11.5-14.5); White Blood Count 10.4 K/mm3 (4.5-10.0)
[2022-12-24 19:41] LABS: Alanine Aminotransferase 19 U/L (6-50); Albumin Level 3.9 g/dL (3.5-5.1); Alkaline Phosphatase 99 U/L (38-126); Anion Gap 8 mmol/L (8-16); Aspartate Amino Transferase 27 U/L (17-59); Bilirubin,Total 0.3 mg/dL (0.2-1.3); Blood Urea Nitrogen 32 mg/dL (9-20); Calcium 9.9 mg/dL (8.4-10.2); Carbon Dioxide 29 mmol/L (22-30); Chloride 101 mmol/L (98-107); Estimated CRCL calculation 40 ml/min; Estimated Glomerular Filt Rate 58; Glucose 126 mg/dL (65-110); Potassium 4.3 mmol/L (3.4-5.0); Sodium 138 mmol/L (137-145)
[2022-12-24 19:43] LABS: Lactic Acid Reflex 2.2 mmol/L (0.7-2.0)
[2022-12-24 19:52] LABS: NT Pro B Type Natriuretic Pept 1580 pg/mL (19.9-100); Troponin I < 0.012 ng/mL (0.000-0.034)
[2022-12-24 22:25] LABS: Reflex Lactic Acid Yes or No Add Lactic
[2022-12-24 23:00] LABS: Lactic Acid 1.2 mmol/L (0.7-2.0)
--- NOTE | 2022-12-24 23:00 | PC.NURSE ---
Assumed care of pt. at this time. Report from RADHA Arellano
[2022-12-25] VITALS (27 sets, daily range): BP systolic 101–121; BP diastolic 75–93; PULSE 70–103; RESP 12–27; O2SAT 93–100
--- NOTE | 2022-12-25 00:38 | PC.NURSE ---
pt. daughter myranda [phone]
--- NOTE | 2022-12-25 00:40 | PC.NURSE ---
pt. accepted at [facility] in [place], [place] pt. bed number 414-1 Report can be called to [phone]. RN spoke w/ pt. RADHA Vela
--- NOTE | 2022-12-25 04:30 | PC.NURSE ---
Called [facility] Transfer and spoke to Darrel to inquire on bed status for patient. No bed as of yet, will let us know when one becomes available.
== END 2022-12-25 04:59 | disposition short-term general hospital (02) ==
PROVIDERS: Emergency Provider Physician Assistant; PCP Family Medicine
DX: I31.39 Other pericardial effusion (noninflammatory) (principal); E11.9 Type 2 diabetes mellitus without complications; E78.00 Pure hypercholesterolemia, unspecified; I10 Essential (primary) hypertension; J44.9 Chronic obstructive pulmonary disease, unspecified; Z87.891 Personal history of nicotine dependence
CPT/HCPCS: 36415; 71045; 71275; 80053; 83605; 83735; 83880; 84484; 85025; 93005; 94640; 99285; Q9967

== ENCOUNTER 2023-03-09 06:53 | Outpatient (CLI) | payer MEDICARE, OTHER, SELFPAY ==
[2023-03-09 08:08] LABS: Hematocrit 32.2 % (42.0-52.0); Hemoglobin 9.4 g/dL (14.0-18.0); Mean Corpuscular HGB Conc 29.2 g/dl (32-36); Mean Corpuscular Hemoglobin 25.1 pg (26-34); Mean Corpuscular Volume 85.9 fl (80-100); Mean Platelet Volume 9.8 fl (7.4-10.4); Platelet Count Result 204 k/mm3 (150-375); Red Blood Count 3.75 M/mm3 (4.6-6.20); Red Cell Distribution Width 17.9 % (11.5-14.5)
[2023-03-09 08:25] LABS: Alanine Aminotransferase 18 U/L (6-50); Albumin Level 3.4 g/dL (3.5-5.1); Alkaline Phosphatase 74 U/L (38-126); Anion Gap 4 mmol/L (8-16); Aspartate Amino Transferase 23 U/L (17-59); Bilirubin,Total 0.4 mg/dL (0.2-1.3); Blood Urea Nitrogen 30 mg/dL (9-20); Carbon Dioxide 33 mmol/L (22-30); Chloride 100 mmol/L (98-107); Estimated Glomerular Filt Rate > 60; Glucose 162 mg/dL (65-110); Potassium 4.2 mmol/L (3.4-5.0); Sodium 137 mmol/L (137-145)
[2023-03-13 19:20] LABS: PSA, Free 0.52 ng/mL; PSA, Total 2.5 ng/mL (<=4.0)
== END 2023-03-09 06:54 | disposition home or self-care (01) ==
PROVIDERS: PCP Family Medicine; Visit Provider Family Medicine
DX: N40.0 Benign prostatic hyperplasia without lower urinary tract symptoms (principal); I50.22 Chronic systolic (congestive) heart failure
CPT/HCPCS: 36415; 80053; 84153; 84154; 85027

== ENCOUNTER 2023-03-18 14:51 | Outpatient (CLI) | payer MEDICARE, OTHER, SELFPAY ==
[2023-03-18 16:30] LABS: MALB Creatinine Ratio 29.8 mg/g (0-30); Microalbumin Urine Random 18.5 mg/L (0-16.7)
== END 2023-03-18 14:52 | disposition home or self-care (01) ==
LOC: ANHLAB 14:54
PROVIDERS: PCP Family Medicine; Visit Provider Family Medicine
DX: E11.9 Type 2 diabetes mellitus without complications (principal)
CPT/HCPCS: 82043

== ENCOUNTER 2023-04-08 09:09 | Observation (INO) | payer MEDICARE, OTHER, SELFPAY ==
[2023-04-08] VITALS (34 sets, daily range): BP systolic 79–128; BP diastolic 59–89; PULSE 76–104; RESP 13–26; TEMP 36.3–37.2; O2SAT 90–96; BMI 24.5
--- NOTE | ~2023-04-08 | XR_ITS ---
EXAMINATION: XR chest 1V portable DATE: 04/08/2023 11:07 INDICATION: Dyspnea and lightheadedness TECHNIQUE: frontal view of the chest was obtained. COMPARISON: Chest radiograph and CT dated 12/24/2022 FINDINGS: And seen is hyperexpansion lungs more prominent on the left. Regions of relative increased lucency an d architectural distortion at the right upper lung and throughout the left lung consistent with moder ate to severe emphysema better appreciated on prior CT. No focal airspace opacities, pulmonary edema, pleural effusion or pneumothorax. Heart size remains within normal limits for AP technique. Moderate thoracic spondylosis. IMPRESSION: 1. Emphysema with left lung predominance. No other acute cardiopulmonary disease. Reviewed, dictated and finalized at location A. IMPRESSION: 1. Emphysema with left lung predominance. No other acute cardiopulmonary diseas e.
--- NOTE | 2023-04-08 10:00 | ECG_ITS ---
Measurements Intervals [place] Rate: 94 P: [place]: 0 QRS: 48 QRSD: 72 T: 69 QT: 351 QTc: 440 Interpretive Statements ATRIAL FIBRILLATION LOW QRS VOLTAGE [QRS DEFLECTION < 0.5/1.0 mV IN LIMB/CHEST LEADS] COMPARED TO ECG 12/24/2022 19:14:47 NO SIGNIFICANT CHANGES Electronically Signed On 04-08-2023 14:29:12 CDT by Christina Aleman M.D.
--- NOTE | 2023-04-08 10:01 | ED.EPISTAXIS ---
HPI - Epistaxis General Chief complaint: Epistaxis <Nicole Horvath PA-C - Last Filed: 04/08/23 18:09> Stated complaint: epistaxis <Nicole Horvath PA-C - Last Filed: 04/08/23 18:09> Time Seen by Provider: 04/08/23 09:28 <Nicole Horvath PA-C - Last Filed: 04/08/23 18:09> History of Present Illness HPI Narrative: 83-year-old male who is currently anticoagulated with Eliquis for atrial fibrillation, history of COPD and CHF reports for evaluation for epistaxis since 0300 this morning. Patient states he wears a CPAP at night, he woke up around 3 AM to go to the bathroom and rub the side of his right nare which started the bleeding. States he was treating bleeding with a cold washcloth and clamping his nose and it eventually subsided around breakfast. He states he was then cleaning his face and the bleeding began again. EMS was called and arrived at the residential, clamp was applied and the patient reports decreased bleeding since. He states initially, he did feel blood draining down the back of his throat but he reports that has since resolved. States he had an episode of epistaxis about 1 month ago which resolved within an hour. He does state he feels mildly lightheaded . He denies syncope, palpitations, chest pain. He does report dyspnea that is unchanged from baseline. He intermittently wears 2L nasal cannula as needed. He has bilateral lower extremity edema which is unchanged from baseline and he is currently taking 20 mg of Lasix daily. Denies fever, change in cough, vomiting. <Nicole Horvath PA-C - Last Filed: 04/08/23 18:09> Related Data Home medications: Home Medications Medication Instructions Recorded Confirmed Combivent Respimat 1 puff inhalation DAILY 01/12/20 04/08/23 Lasix 20 mg PO DAILY 01/12/20 04/08/23 Protonix 40 mg PO DAILY 01/12/20 04/08/23 atorvastatin 40 mg PO DAILY 01/12/20 04/08/23 fluticasone 250 mcg-salmeterol 50 1 inh inhalation DAILY 01/12/20 04/08/23 mcg/dose blistr powdr for inhalation (Advair Diskus) potassium chloride 20 mEq 20 meq PO DAILY 01/12/20 04/08/23 tablet,extended release(part/cryst) tamsulosin 0.4 mg capsule 0.4 mg PO DAILY 01/12/20 04/08/23 apixaban 5 mg tablet (Eliquis) 5 mg PO BID 04/08/23 04/08/23 aspirin 81 mg tablet,delayed 81 mg PO DAILY 04/08/23 04/08/23 release cetirizine 10 mg tablet 10 mg PO DAILY 04/08/23 04/08/23 diphenhydramine HCl 25 mg capsule 25 mg PO HS 04/08/23 04/08/23 (Benadryl) finasteride 5 mg tablet 5 mg PO DAILY 04/08/23 04/08/23 metformin 1,000 mg tablet 1,000 mg PO BID 04/08/23 04/08/23 metformin 500 mg tablet 500 mg PO DAILY 04/08/23 04/08/23 montelukast 10 mg tablet 10 mg PO DAILY 04/08/23 04/08/23 vitamin A-vitamin C-vit E-min 1 tablet PO DAILY 04/08/23 04/08/23 tablet <Nicole Horvath PA-C - Last Filed: 04/08/23 18:09> Allergies/adverse reactions: Allergies Allergy/AdvReac Type Severity Reaction Status Date / Time No Known Allergies Allergy Verified 04/08/23 09:17 <Nicole Horvath PA-C - Last Filed: 04/08/23 18:09> Review of Systems Review of Systems: CONSTITUTIONAL: Denies fever, chills EYES: Denies visual changes, redness, or discharge. ENT: See HPI CARDIOVASCULAR: Denies chest pain, palpitations, or edema. RESPIRATORY: See HPI GASTROINTESTINAL: Denies abdominal pain, nausea, vomiting, or diarrhea. GENITOURINARY: Denies dysuria or hematuria. SKIN: Denies rash or itching. MUSCULOSKELETAL: Denies back pain, joint pain, or myalgia. NEUROLOGIC: Denies headache, numbness, dizziness, or weakness. PSYCHIATRIC: Denies anxiety or depression. <Nicole Horvath PA-C - Last Filed: 04/08/23 18:09> [facility] Past Medical History Medical History: Medical History (Updated 04/08/23 @ 15:49 by Tamar Villatoro PA-C) Atrial fibrillation Benign prostatic hyperplasia Chronic anemia Chronic anticoagulation Chronic obstructive pulmonary disease Hyperlipidemia Hypertension
[2023-04-08 10:23] LABS: Basophils Absolute Auto 0.1 K/mm3 (0.0-0.1); Basophils Percent Auto 0.5 % (0.2-1.2); Eosinophils Absolute Auto 0.1 K/mm3 (0-0.3); Hematocrit 29.6 % (42.0-52.0); Hemoglobin 8.6 g/dL (14.0-18.0); Immature Granulocyte Absolute 0.05 K/mm3 (0.00-0.031); Immature Granulocyte Percent A 0.4 % (0-0.5); Lymphocytes Absolute Auto 0.96 K/mm3 (0.9-3.2); Lymphocytes Percent Auto 8.3 % (18.3-44.2); Mean Corpuscular HGB Conc 29.1 g/dl (32-36); Mean Corpuscular Hemoglobin 23.3 pg (26-34); Mean Corpuscular Volume 80.2 fl (80-100); Mean Platelet Volume 9.5 fl (7.4-10.4); Monocytes Absolute Auto 0.9 K/mm3 (0.1-0.6); Monocytes Percent Auto 8.1 % (2.6-8.5); Neutrophils Absolute Auto 9.5 K/mm3 (1.3-6.7); Neutrophils Percent Auto 81.7 % (45.5-73.1); Platelet Count Result 259 k/mm3 (150-375); Red Blood Count 3.69 M/mm3 (4.6-6.20); Red Cell Distribution Width 17.7 % (11.5-14.5); White Blood Count 11.6 K/mm3 (4.5-10.0)
[2023-04-08] MEDS: SODIUM CHLORIDE 0.9% IV 500 ML 999 ML IV CONT (10:23)
[2023-04-08 10:37] LABS: Hypochromasia 1+ (NORMAL); Ovalocytes 1+ (NORMAL); Platelet Estimate Adequate (Adequate); Schistocytes None Seen (NORMAL)
[2023-04-08 10:39] LABS: INR 1.3; Partial Thromboplastin Time 30.7 SECONDS (22.3-36.8); Prothrombin Time 17.3 Seconds (11.1-14.7)
[2023-04-08 10:40] LABS: Anion Gap 8 mmol/L (8-16); Blood Urea Nitrogen 37 mg/dL (9-20); Calcium 9.7 mg/dL (8.4-10.2); Carbon Dioxide 30 mmol/L (22-30); Chloride 100 mmol/L (98-107); Estimated CRCL calculation 39 ml/min; Estimated Glomerular Filt Rate 58; Glucose 153 mg/dL (65-110); Potassium 3.9 mmol/L (3.4-5.0); Sodium 138 mmol/L (137-145)
[2023-04-08] MEDS: IPRATROPIUM BR 0.02% INH SOLN 0.5 MG/2.5 ML VIAL INHALATION (10:47)
[2023-04-08] MEDS: ALBUTEROL SULFATE NEB 2.5 MG/3 ML INH INHALATION (10:47)
[2023-04-08 10:49] LABS: Magnesium 1.8 mg/dL (1.6-2.3)
[2023-04-08 10:56] LABS: NT Pro B Type Natriuretic Pept 2320 pg/mL (19.9-100); Troponin I < 0.012 ng/mL (0.000-0.034)
[2023-04-08 11:09] LABS: Appearance Urine Clear (Clear); Bilirubin Urine Negative (Negative); Blood Urine Negative (Negative); Color Urine Yellow (Yellow); Glucose Urine UA 3+ mg/dL (Negative); Ketones Urine Negative (Negative); Leukocyte Esterase Ur Negative LEU/UL (Negative); Nitrate Urine Negative (Negative); Protein Urine Negative (Negative); Specific Grav Ur 1.018 (1.001-1.035); pH Urine 7.5 (5.0-9.0)
[2023-04-08 11:30] LABS: Add Urine Microscopic? NO
[2023-04-08 13:26] LABS: Alanine Aminotransferase 18 U/L (6-50); Albumin Level 3.5 g/dL (3.5-5.1); Alkaline Phosphatase 73 U/L (38-126); Aspartate Amino Transferase 21 U/L (17-59); Bilirubin,Total 0.5 mg/dL (0.2-1.3)
[2023-04-08 13:36] LABS: Troponin I 0.015 ng/mL (0.000-0.034)
--- NOTE | 2023-04-08 13:59 | ADMGEN ---
This patient, Anurag Carmona, was admitted to 2 Medical Room 258-. Patient/family oriented to hospital policies and general routines including ID bracelet, bed and alarms, visiting hours, pain management, procedures, bathroom and other care routines, personal items, smoking policy, room service/diet, and visiting hours. Information on how to activate the Rapid Response Team has been discussed. Patient/Family are encouraged to report perceived risks to care and to ask questions if they do not understand what they are told or what they should do.
--- NOTE | 2023-04-08 15:21 | PM.IMHP ---
H&P: HPI History of Present Illness Date/Time: 04/08/23 15:00 Chief Complaint: Nose bleed. Narrative: This is a very pleasant 83-year-old male with atrial fibrillation on anticoagulation, coronary artery disease with stent in 2005, type 2 diabetes mellitus, hyperlipidemia, chronic obstructive pulmonary disease, anemia (previously on ferrous sulfate but he was taken off of that a year or more ago for unclear reasons) and benign prostatic hyperplasia who presented to the emergency department via EMS from his assisted living facility for evaluation of a nose bleed. The patient provides the following history. He awoke at about 03:00 to use the restroom and his nose was dry which is not unusual for him while using his CPAP. He felt as though he had something in the right nostril and rubbed the area when it started to bleed heavily. It took him almost an hour to control the bleeding. Once he got up for the day he washed his face and it started to bleed again. He alerted the nursing staff and they sent him to the ER as he was feeling weak and lightheaded. In the ED: Blood pressure has been as low as 79/59 but did improve with IV fluids and has remained stable. Initial hemoglobin was 8.6 which is 2.5 g lower than what it was 4 months ago and 1.2 g lower than what it was just 1 month ago. His other labs were significant for a WBC count of 11.6, INR 1.3, BUN 37, creatinine 1.20, proBNP 2320. Chest x-ray showed emphysema with left lung predominance. Due to the drop in hemoglobin and soft blood pressures, he is being admitted overnight for observation and close monitoring. At the time my evaluation he is having a late lunch and reports feeling okay. He has no specific complaints. Review of Systems Review of Systems: Twelve systems were reviewed. No fever, chills, or sweats. No recent cold or flu symptoms. No chest pain or increasing shortness of breath from his baseline. He denies sensations of racing heart and palpitations. No orthopnea or paroxysmal nocturnal dyspnea. He has chronic lower extremity edema and reports that it has been better recently when compared to baseline. He is compliant with his CPAP. He has not noticed any blood in the stools. No recent episodes of hypoglycemia. Except as documented, all other systems were reviewed and are negative. [facility] Past Medical History Medical History (Updated 04/08/23 @ 15:49 by Tamar Villatoro PA-C) Atrial fibrillation Benign prostatic hyperplasia Chronic anemia Chronic anticoagulation Chronic obstructive pulmonary disease Hyperlipidemia Hypertension Obstructive sleep apnea on CPAP Type 2 diabetes mellitus Surgical History Surgical History (Updated 04/08/23 @ 15:39 by Tamar Villatoro PA-C) History of appendectomy (1959) History of bladder surgery History of cardiac catheterization (2005) History of cataract extraction History of coronary artery stent placement (2005) History of transurethral resection of prostate (2016) Family History Family History Father Family history of arthritis Mother Family history of arthritis Social History Social History (Updated 04/08/23 @ 15:40 by Tamar Villatoro PA-C) Social History: Surrogate medical decision maker: Billie Liu, yair. Code status: Full code. Smoking packs per day: 1 Smoking cigarettes per day: 20.0 Years smoked: 50 Smoking pack-years: 50.00 Smoking status: Former smoker Alcohol intake: current Alcohol use details: Social alcohol use in moderation. Substance use: never Lack of Transportation: No Lack of Food: Never True Current Housing: I Have Housing Concerned About Future Housing: No Difficulty Paying Gas/Electric Bills: No Difficulty Paying for Meds: No Currently Unemployed: No Education: Master's Degree or Higher Difficulty w/ Childcare or Family Care: No Additional living arrangements comments: . Lives i
[2023-04-08 16:47] LABS: Hematocrit 29.3 % (42.0-52.0); Hemoglobin 8.6 g/dL (14.0-18.0)
[2023-04-08 17:06] LABS: Glucose Point of Care 143 mg/dl (65-105)
[2023-04-08 17:08] LABS: Iron 30 ug/dL (49-181)
[2023-04-08 17:17] LABS: Percent Iron Saturation 8 % (20-50)
[2023-04-08 17:23] LABS: Hemoglobin A1C 7.6 % (<5.7)
[2023-04-08 17:45] LABS: Ferritin 7.51 ng/mL (11.1-264)
[2023-04-08 18:15] LABS: Folic Acid 17.5 ng/mL (2.76->20)
[2023-04-08] MEDS: diphenhydrAMINE HCl CAP 25 MG CAPSULE PO (20:32)
[2023-04-08] MEDS: INSULIN ASPART (*BKC) 100 UNITS/ML SUB-Q (20:32)
[2023-04-08 20:43] LABS: Glucose Point of Care 252 mg/dl (65-105)
[2023-04-08] MEDS: FLUTICASONE/SALMETEROL 115-21 MCG INHALER 1 PUFF 2 PUFF INHALATION (20:49)
[2023-04-09] VITALS (10 sets, daily range): BP systolic 98–134; BP diastolic 65–89; PULSE 80–108; RESP 18–20; TEMP 36.6–36.8; O2SAT 94–97
[2023-04-09 00:44] LABS: Hematocrit 26.1 % (42.0-52.0); Hemoglobin 7.8 g/dL (14.0-18.0)
[2023-04-09 05:57] LABS: Hematocrit 27.5 % (42.0-52.0); Mean Corpuscular HGB Conc 29.1 g/dl (32-36); Mean Corpuscular Hemoglobin 23.4 pg (26-34); Mean Corpuscular Volume 80.4 fl (80-100); Mean Platelet Volume 10.1 fl (7.4-10.4); Platelet Count Result 257 k/mm3 (150-375); Red Blood Count 3.42 M/mm3 (4.6-6.20); Red Cell Distribution Width 17.8 % (11.5-14.5); White Blood Count 8.9 K/mm3 (4.5-10.0)
[2023-04-09 06:10] LABS: Anion Gap 5 mmol/L (8-16); Blood Urea Nitrogen 34 mg/dL (9-20); Calcium 9.4 mg/dL (8.4-10.2); Carbon Dioxide 28 mmol/L (22-30); Chloride 104 mmol/L (98-107); Estimated CRCL calculation 42 ml/min; Estimated Glomerular Filt Rate > 60; Glucose 152 mg/dL (65-110); Magnesium 1.9 mg/dL (1.6-2.3); Potassium 3.8 mmol/L (3.4-5.0); Sodium 137 mmol/L (137-145)
--- NOTE | 2023-04-09 08:10 | PM.IMPN ---
Progress Note: A&P Assessment and Plan (1) Acute on chronic anemia: Code(s): D64.9 - Anemia, unspecified Status: Acute Assessment and Plan: Baseline hemoglobin runs between 11 and 12. Currently 8.6, presumably due to blood loss from epistaxis. Check iron studies, B12, and folate. Iron 30, TIBC 369, saturation 8%, ferritin 7.5, vitamin B 12 207, folate 17.5 Add MMA and homocystine labs to confirm vitamin B 12 Add IV Venofer, PO ferrous sulfate Trend hemoglobin and transfuse if indicated. (2) Epistaxis: Code(s): R04.0 - Epistaxis Status: Acute Assessment and Plan: Patient reports his nose was bleeding from 03:00 to 09:00. Sounds anterior, nothing noted on exam. Hemoglobin is down to 8.6 and will be trended. Hold this evening's apixaban. Hgb stable, no reoccurrence of bleeding. Will restart apixiban and see how he does Afrin spray prn for bleeding (3) Hypotension: Code(s): I95.9 - Hypotension, unspecified Status: Acute Assessment and Plan: BP was as low as 79/59 in the ED; improved with 500 normal saline bolus. Presumably due to blood loss from epistaxis. Monitor orthostatic vital signs. Hold furosemide for now. Blood pressures have normalized. 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 No bleeding since admission, restarted Eliquis (5) Atrial fibrillation: Code(s): I48.91 - Unspecified atrial fibrillation Status: Acute Assessment and Plan: He is rate controlled without medication. (6) Obstructive sleep apnea on CPAP: Code(s): G47.33 - Obstructive sleep apnea (adult) (pediatric) Status: Acute Assessment and Plan: CPAP will be provided for the patient to use while hospitalized. (7) Type 2 diabetes mellitus: Code(s): E11.9 - Type 2 diabetes mellitus without complications Status: Acute Assessment and Plan: Random glucose was 153. Check hemoglobin A1c. Initiate sliding scale insulin, Accu-Cheks, and hypoglycemic protocol. Hgb 7.6% (8) Chronic obstructive pulmonary disease: Code(s): J44.9 - Chronic obstructive pulmonary disease, unspecified Status: Acute Assessment and Plan: No acute issues. Chest x-ray shows emphysema with left lung predominance. Continue maintenance inhalers. Plan Feeding:Dm diet Analgesia:tylenol Thromboembolic prophylaxis: scd, eliquis Ulcer prophylaxis: protonix daily Glycemic control: SSI, accu checks, hypoglycemic protocol Bowel regimen: miralax prn Lines: PIV Antibiotics: na Anticipate discharge this afternoon. Subjective Date/time seen: 04/09/23 08:10 Interval history: HPI obtained from chart, This is a very pleasant 83-year-old male with atrial fibrillation on anticoagulation, coronary artery disease with stent in 2005, type 2 diabetes mellitus, hyperlipidemia, chronic obstructive pulmonary disease, anemia (previously on ferrous sulfate but he was taken off of that a year or more ago for unclear reasons) and benign prostatic hyperplasia who presented to the emergency department via EMS from his assisted living facility for evaluation of a nose bleed. The patient provides the following history. He awoke at about 03:00 to use the restroom and his nose was dry which is not unusual for him while using his CPAP. He felt as though he had something in the right nostril and rubbed the area when it started to bleed heavily. It took him almost an hour to control the bleeding. Once he got up for the day he washed his face and it started to bleed again. He alerted the nursing staff and they sent him to the ER as he was feeling weak and lightheaded. In the ED: Blood pressure has been as low as 79/59 but did improve with IV fluids and
[2023-04-09 08:12] LABS: Glucose Point of Care 149 mg/dl (65-105)
[2023-04-09] MEDS: PANTOPRAZOLE 40 MG TABLET PO (08:19)
[2023-04-09] MEDS: TAMSULOSIN HCL 0.4 MG CAPSULE PO (08:19)
[2023-04-09] MEDS: ATORVASTATIN 40 MG TABLET PO (08:19)
[2023-04-09] MEDS: MONTELUKAST SODIUM 10 MG TABLET PO (08:19)
[2023-04-09] MEDS: LORATADINE 10 MG TABLET PO (08:20)
[2023-04-09] MEDS: FINASTERIDE 5 MG TABLET PO (08:20)
[2023-04-09] MEDS: FERROUS SULFATE 325 MG TABLET DR PO (09:15)
[2023-04-09] MEDS: APIXABAN 5 MG TABLET PO (09:15)
[2023-04-09 09:59] LABS: Hematocrit 30.2 % (42.0-52.0); Hemoglobin 8.7 g/dL (14.0-18.0)
[2023-04-09] MEDS: FLUTICASONE/SALMETEROL 115-21 MCG INHALER 1 PUFF 2 PUFF INHALATION (11:02)
[2023-04-09 12:06] LABS: Glucose Point of Care 193 mg/dl (65-105)
--- NOTE | 2023-04-09 15:05 | PM.DS ---
DS: Admitting Diagnosis Discharge Date 04-09 Admitting Diagnosis Nose bleed DS: Discharge Diagnosis Discharge Diagnosis (1) Acute on chronic anemia: Code(s): D64.9 - Anemia, unspecified Status: Acute Assessment and Plan: Baseline hemoglobin runs between 11 and 12. Currently 8.6, presumably due to blood loss from epistaxis. Check iron studies, B12, and folate. Iron 30, TIBC 369, saturation 8%, ferritin 7.5, vitamin B 12 207, folate 17.5 Add MMA and homocystine labs to confirm vitamin B 12 Add IV Venofer, PO ferrous sulfate Trend hemoglobin and transfuse if indicated. (2) Epistaxis: Code(s): R04.0 - Epistaxis Status: Acute Assessment and Plan: Patient reports his nose was bleeding from 03:00 to 09:00. Sounds anterior, nothing noted on exam. Hemoglobin is down to 8.6 and will be trended. Hold this evening's apixaban. Hgb stable, no reoccurrence of bleeding. Will restart apixiban and see how he does Afrin spray prn for bleeding (3) Hypotension: Code(s): I95.9 - Hypotension, unspecified Status: Acute Assessment and Plan: BP was as low as 79/59 in the ED; improved with 500 normal saline bolus. Presumably due to blood loss from epistaxis. Monitor orthostatic vital signs. Hold furosemide for now. Blood pressures have normalized. SBP 130's (4) Chronic anticoagulation: Code(s): Z79.01 - skilled nursing (current) use of anticoagulants Status: Acute Assessment and Plan: This evening apixaban dose is on hold in light of above. No bleeding since admission, restarted Eliquis (5) Atrial fibrillation: Code(s): I48.91 - Unspecified atrial fibrillation Status: Acute Assessment and Plan: He is rate controlled without medication. (6) Obstructive sleep apnea on CPAP: Code(s): G47.33 - Obstructive sleep apnea (adult) (pediatric) Status: Acute Assessment and Plan: CPAP will be provided for the patient to use while hospitalized. (7) Type 2 diabetes mellitus: Code(s): E11.9 - Type 2 diabetes mellitus without complications Status: Acute Assessment and Plan: Random glucose was 153. Check hemoglobin A1c. Initiate sliding scale insulin, Accu-Cheks, and hypoglycemic protocol. Hgb 7.6% (8) Chronic obstructive pulmonary disease: Code(s): J44.9 - Chronic obstructive pulmonary disease, unspecified Status: Acute Assessment and Plan: No acute issues. Chest x-ray shows emphysema with left lung predominance. Continue maintenance inhalers. Plan Feeding:Dm diet Analgesia:tylenol Thromboembolic prophylaxis: scd, eliquis Ulcer prophylaxis: protonix daily Glycemic control: SSI, accu checks, hypoglycemic protocol Bowel regimen: miralax prn Lines: PIV Antibiotics: na Anticipate discharge this afternoon. DS: Summary Hospital Course Hospital Course: This is a very pleasant 83-year-old male with atrial fibrillation on anticoagulation, coronary artery disease with stent in 2005, type 2 diabetes mellitus, hyperlipidemia, chronic obstructive pulmonary disease, anemia (previously on ferrous sulfate but he was taken off of that a year or more ago for unclear reasons) and benign prostatic hyperplasia who presented to the emergency department via EMS from his assisted living facility for evaluation of a nose bleed. The patient provides the following history. He awoke at about 03:00 to use the restroom and his nose was dry which is not unusual for him while using his CPAP. He felt as though he had something in the right nostril and rubbed the area when it started to bleed heavily. It took him almost an hour to control the bleeding. Once he got up for the day he washed his face and it started to bleed again. He alerted the nursing staff and they sent him to the ER as he was feeling weak and lightheaded. In the ED: Blood pressure has been as low as 79/
[2023-04-12 18:43] LABS: Methylmalonic Acid 678 nmol/L (87-318)
[2023-04-12 20:10] LABS: Homocysteine 11.7 umol/L (<11.4)
== END 2023-04-09 16:00 | disposition home or self-care (01) ==
LOC: ANHED 09:37 → ANH2MED 04-09 15:10
PROVIDERS: Nurse Practitioner Acute Care; Physician Assistant; Admitting Provider Chiropractor; Emergency Provider Physician Assistant; PCP Family Medicine; Visit Provider Chiropractor
DX: D64.9 Anemia, unspecified (principal); R04.0 Epistaxis; I95.9 Hypotension, unspecified; I11.0 Hypertensive heart disease with heart failure; I50.9 Heart failure, unspecified; R42 Dizziness and giddiness; R06.00 Dyspnea, unspecified; I48.91 Unspecified atrial fibrillation; J44.9 Chronic obstructive pulmonary disease, unspecified; J43.9 Emphysema, unspecified; E78.5 Hyperlipidemia, unspecified; G47.33 Obstructive sleep apnea (adult) (pediatric); D72.829 Elevated white blood cell count, unspecified; E11.9 Type 2 diabetes mellitus without complications; N40.0 Benign prostatic hyperplasia without lower urinary tract symptoms; F10.90 Alcohol use, unspecified, uncomplicated; R79.89 Other specified abnormal findings of blood chemistry; Z87.891 Personal history of nicotine dependence; Z99.89 Dependence on other enabling machines and devices; Z79.01 Long term (current) use of anticoagulants; Z79.1 Long term (current) use of non-steroidal anti-inflammatories (NSAID); Z79.51 Long term (current) use of inhaled steroids; Z79.82 Long term (current) use of aspirin; Z79.84 Long term (current) use of oral hypoglycemic drugs; Z79.899 Other long term (current) drug therapy
CPT/HCPCS: 36415; 71045; 80048; 80076; 81003; 82607; 82728; 82746; 82948; 83036; 83090; 83540; 83550; 83735; 83880; 83921; 84443; 84484; 85014; 85018; 85025; 85027; 85610; 85730; 93005; 94640; 96361; 96374; 96375; 99285; A9270; G0378; J1756; J1815; J7030

== ENCOUNTER 2023-04-22 07:33 | Emergency (ER) | payer MEDICARE, OTHER, SELFPAY ==
[2023-04-22] VITALS (9 sets, daily range): BP systolic 102–113; BP diastolic 73–85; PULSE 96–105; RESP 16–22; TEMP 36.5; O2SAT 94–100
--- NOTE | 2023-04-22 08:43 | ED.EPISTAXIS ---
HPI - Epistaxis General Chief complaint: Epistaxis Stated complaint: epistaxis Time Seen by Provider: 04/22/23 08:26 History of Present Illness HPI Narrative: 83-year-old male present emergency department for evaluation of epistaxis. Patient is on Eliquis for A-fib. Patient does use CPAP at nighttime but states it is humidified. Patient reports when he wakes up he feels that his airway is dry. Patient had a similar bleed a few weeks ago. Patient has not had interval follow-up with ENT. Bleeding restarted this morning and he was having difficulty controlling it. Patient called EMS and arrived to the ED with a nasal clamp on. Related Data Home Medications Medication Instructions Recorded Confirmed Combivent Respimat 1 puff inhalation DAILY 01/12/20 04/08/23 Lasix 20 mg PO DAILY 01/12/20 04/08/23 Protonix 40 mg PO DAILY 01/12/20 04/08/23 atorvastatin 40 mg PO DAILY 01/12/20 04/08/23 fluticasone 250 mcg-salmeterol 50 1 inh inhalation DAILY 01/12/20 04/08/23 mcg/dose blistr powdr for inhalation (Advair Diskus) potassium chloride 20 mEq 20 meq PO DAILY 01/12/20 04/08/23 tablet,extended release(part/cryst) tamsulosin 0.4 mg capsule 0.4 mg PO DAILY 01/12/20 04/08/23 apixaban 5 mg tablet (Eliquis) 5 mg PO BID 04/08/23 04/08/23 aspirin 81 mg tablet,delayed 81 mg PO DAILY 04/08/23 04/08/23 release cetirizine 10 mg tablet 10 mg PO DAILY 04/08/23 04/08/23 diphenhydramine HCl 25 mg capsule 25 mg PO HS 04/08/23 04/08/23 (Benadryl) finasteride 5 mg tablet 5 mg PO DAILY 04/08/23 04/08/23 metformin 1,000 mg tablet 1,000 mg PO BID 04/08/23 04/08/23 metformin 500 mg tablet 500 mg PO DAILY 04/08/23 04/08/23 montelukast 10 mg tablet 10 mg PO DAILY 04/08/23 04/08/23 vitamin A-vitamin C-vit E-min 1 tablet PO DAILY 04/08/23 04/08/23 tablet Allergies Allergy/AdvReac Type Severity Reaction Status Date / Time No Known Allergies Allergy Verified 04/08/23 09:17 Review of Systems Review of Systems: All systems reviewed & are unremarkable except as noted in HPI and below PMFSH Past Medical History Medical History (Updated 04/22/23 @ 09:44 by Javier Cuellar MD) Atrial fibrillation Benign prostatic hyperplasia Chronic anemia Chronic anticoagulation Chronic obstructive pulmonary disease Hyperlipidemia Hypertension Obstructive sleep apnea on CPAP Type 2 diabetes mellitus Surgical History Surgical History (Updated 04/08/23 @ 15:39 by Tamar Villatoro PA-C) History of appendectomy (1959) History of bladder surgery History of cardiac catheterization (2005) History of cataract extraction History of coronary artery stent placement (2005) History of transurethral resection of prostate (2016) Family History Family History Father Family history of arthritis Mother Family history of arthritis Social History Social History (Updated 04/08/23 @ 15:40 by Tamar Villatoro PA-C) Social History: Surrogate medical decision maker: Billiemaine Liu, sibling. Code status: Full code. Smoking packs per day: 1 Smoking cigarettes per day: 20.0 Years smoked: 50 Smoking pack-years: 50.00 Smoking status: Former smoker Alcohol intake: current Alcohol use details: Social alcohol use in moderation. Substance use: never Lack of Transportation: No Lack of Food: Never True Current Housing: I Have Housing Concerned About Future Housing: No Difficulty Paying Gas/Electric Bills: No Difficulty Paying for Meds: No Currently Unemployed: No Education: Master's Degree or Higher Difficulty w/ Childcare or Family Care: No Additional living arrangements comments: . Lives in assisted living at [facility]. 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 Spiritual care concerns: No Exam Narrative: APPEARANCE: Well appearing, no pain, no distress, well-nourished. HEAD: normocephalic, atraumatic.
== END 2023-04-22 11:13 | disposition home or self-care (01) ==
PROVIDERS: Emergency Provider Emergency Medicine; PCP Family Medicine
DX: R04.0 Epistaxis (principal); I48.91 Unspecified atrial fibrillation; J44.9 Chronic obstructive pulmonary disease, unspecified; E78.5 Hyperlipidemia, unspecified; I10 Essential (primary) hypertension; E11.9 Type 2 diabetes mellitus without complications; Z87.891 Personal history of nicotine dependence
CPT/HCPCS: 30901; 99283; A9270